=== PATIENT | female | born 1950 | race African-American/Black ===

== ENCOUNTER 2022-06-10 09:39 | Emergency (ER) | payer OTHER, MEDICAID ==
[~2022-06-10] VITALS: Ht 167.6 cm; Wt 74.0 kg
[2022-06-10] MEDS ORDERED: ASPIRIN 81MG TABLET PO ONE (09:45)
[2022-06-10] MEDS ORDERED: NITROGLYCERIN 0.4MG TABLET SL SL PRN (09:45)
[2022-06-10 11:43] LABS: BASOPHILS % 0.7 % (0.0-2.0); HEMATOCRIT. 36.1 % (36.0-48.0); HEMOGLOBIN. 12.1 g/dL (12.0-16.0); LYMPHOCYTES % 22.9 % (20.0-50.0); MEAN PLATELET VOLUME 9.7 fl (7.4-10.4); MONOCYTES % 6.5 % (2.0-8.0); NEUTROPHILS % 67.9 % (40.0-76.0); PLATELET 313 x1000/uL (130-400); RED BLOOD CELL COUNT 4.06 mill/uL (4.2-5.4); RED CELL DISTRIBUTION WIDTH 13.5 % (11.6-14.6)
[2022-06-10 11:52] LABS: CHLORIDE 99 mEq/L (98-107)
[2022-06-10] MEDS ORDERED: POTASSIUM CHLORIDE 20MEQ TABLET SR PO ONE (12:15)
[2022-06-10 13:15] VITALS: BP 129/63
== END 2022-06-10 13:24 | disposition home or self-care (01) ==
LOC: ER 10:09
DX: R07.89 Other chest pain (principal); I10 Essential (primary) hypertension; Z20.822 Contact with and (suspected) exposure to COVID-19
CPT/HCPCS: 36415; 71045; 80053; 83880; 84484; 85025; 87426; 93005; 99291; C9803